=== PATIENT | male | born 1985 | race Two or more races ===

== ENCOUNTER 2022-06-24 10:44 | Emergency (ER) | payer MEDICAID, OTHER ==
[~2022-06-24] VITALS: Ht 175.3 cm; Wt 90.0 kg
[2022-06-24 12:10] VITALS: BP 135/77
[2022-06-24] MEDS ORDERED: ACET1CAP14 PO (13:21)
[2022-06-24 13:35] LABS: Urine Bacteria NONE SEEN /hpf (None Seen); Urine Blood Negative /uL (Negative); Urine Mucus FEW (None Seen); Urine Specific Gravity 1.023 (1.001-1.035); Urine WBC 1 /hpf (0 - 3)
== END 2022-06-24 14:03 | disposition home or self-care (01) ==
LOC: ER 10:44
DX: N43.3 Hydrocele, unspecified (principal); Z79.899 Other long term (current) drug therapy
CPT/HCPCS: 76870; 81001; 99284; J7030